=== PATIENT | male | born 1975 | race Caucasian/White ===

== ENCOUNTER 2019-08-01 19:42 | Emergency (ER) | payer OTHER ==
[2019-08-01 20:07] VITALS: BP 121/80; PULSE 74; TEMP 97.9; BMI 25.1
[2019-08-01] MEDS ORDERED: ACETAMINOPHEN 1000 MG/100 ML VIAL (NON FORMULARY) IVPB ONE (21:22)
[2019-08-01] MEDS ORDERED: ACETAMINOPHEN 325 MG TABLET (FP) PO ONE (21:26)
[2019-08-01] MEDS ORDERED: ACETAMINOPHEN 325 MG TABLET (FP) ONE (21:27)
[2019-08-01 21:41] LABS: BASO % 0.5 % (0-2.0); EOS % 2.3 % (0-4.5); HEMOGLOBIN 13.7 GM/dL (11.7-16.9); LYMPH % 30.4 % (8-40); MCH 29.3 pg (25.7-33.7); MCHC 34.2 g/dl (32.0-35.9); MEAN CELL VOLUME 85.7 fl (80-96); MEAN PLT VOLUME 7.8 fl (7.5-11.1); NEUT % 60.8 % (42.8-82.8); PLATELET COUNT 293 K/MM3 (134-434); RBC 4.66 M/mm3 (4.00-5.60); RDW 12.5 % (11.9-15.9); WHITE BLOOD COUNT 9.6 K/mm3 (4.0-10.0)
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
[2019-08-01] MEDS ORDERED: IBUPROFEN 600 MG TABLET (FP) PO ONE ×2 (23:35→23:43)
== END 2019-08-01 23:58 | disposition home or self-care (01) ==
LOC: JER 19:42
DX: S13.4XXA Sprain of ligaments of cervical spine, initial encounter (principal); V43.52XA Car driver injured in collision with other type car in traffic accident, initial encounter; Y92.414 Local residential or business street as the place of occurrence of the external cause; Y93.89 Activity, other specified; Y99.8 Other external cause status; Z88.0 Allergy status to penicillin
CPT/HCPCS: 36415; 70450-TC; 72125-TC; 72131-TC; 72170-TC-FY; 85025; 99282-25